=== PATIENT | male | born 1980 | race Caucasian/White ===

== ENCOUNTER 2016-11-18 17:43 | Emergency (ER) | payer SELFPAY ==
[~2016-11-18 17:43] MED LIST: AMOXIL875 MG PO; ASPIRIN; DARVOCET-N 1001 TAB PO; FLEXERIL10 MG PO; KEFLEX500 M1 PO; LORTAB 5/500 TA1 TAB PO; MOTRIN800 MG PO; TYLENOL W/CODEI1 TA PO; VIBRAMYCIN100 MG PO
== END 2016-11-18 20:20 | disposition left against medical advice (07) ==
LOC: EDMED 17:43
DX: M25.521 Pain in right elbow (principal); Z53.21 Procedure and treatment not carried out due to patient leaving prior to being seen by health care provider

== ENCOUNTER 2016-11-29 11:18 | Emergency (ER) | payer SELFPAY ==
[2016-11-29] MEDS ORDERED: NO HOME MEDICATION XX (11:30)
[2016-11-29] MEDS ORDERED: CLEOCIN HCL300 M1 PO (12:34)
[2016-11-29] MEDS ORDERED: NORCO 5-325 TA1 EACH PO (12:34)
== END 2016-11-29 13:04 ==
LOC: EDMED 11:18
DX: L03.113 Cellulitis of right upper limb (principal); Z23 Encounter for immunization; F17.210 Nicotine dependence, cigarettes, uncomplicated; Z88.2 Allergy status to sulfonamides

== ENCOUNTER 2016-12-22 17:15 | Emergency (ER) | payer SELFPAY ==
[~2016-12-22 17:15] MED LIST changes: +CLEOCIN HCL300 M1 PO; +NO HOME MEDICATION XX; +NORCO 5-325 TA1 EACH PO
[2016-12-22] MEDS ORDERED: DOXYCYCLINE HY100 M3 PO (18:42)
== END 2016-12-22 18:51 ==
LOC: EDMED 17:15
DX: L03.221 Cellulitis of neck (principal); I10 Essential (primary) hypertension; F17.210 Nicotine dependence, cigarettes, uncomplicated; Z88.2 Allergy status to sulfonamides

== ENCOUNTER 2017-01-29 15:07 | Emergency (ER) | payer SELFPAY ==
[~2017-01-29 15:07] MED LIST changes: +DOXYCYCLINE HY100 M3 PO
[2017-01-29] MEDS ORDERED: NO HOME MEDICATION XX (15:36)
[2017-01-29 16:46] LABS: URINE APPEARANCE SLIGHTLY HAZY; URINE BILIRUBIN NEGATIVE (NEG); URINE BLOOD NEGATIVE (NEG); URINE COLOR YELLOW; URINE GLUCOSE (UA) MODERATE (NEG); URINE KETONE NEGATIVE (NEG); URINE LEUKOCYTE ESTERASE POSITIVE (NEG); URINE NITRITE NEGATIVE (NEG); URINE PROTEIN SMALL (NEG); URINE SPECIFIC GRAVITY 1.015 (1.003-1.030)
[2017-01-29 17:01] LABS: URINE BACTERIA 1+; URINE EPITHELIAL CELLS 0 /[HPF] (0-10)
[2017-01-29] MEDS ORDERED: NORCO 5/3251 TAB PO (17:22)
[2017-01-29] MEDS ORDERED: IBUPROFEN600 M1 PO (17:22)
[2017-01-29] MEDS ORDERED: VIBRAMYCIN100 M1 PO (17:22)
== END 2017-01-29 17:45 ==
LOC: EDMED 15:07
PROVIDERS: Emergency Medicine
DX: N45.1 Epididymitis (principal)
CPT/HCPCS: J0696